=== PATIENT | male | born 1975 | race African-American/Black ===

== ENCOUNTER 2016-09-20 05:48 | Inpatient (IN) ==
[2016-09-20 06:01] LABS: MANUAL DIFF NEEDED? NO
[2016-09-20 06:06] LABS: BASO% 0.3 % (0.0-0.8); EOS# 0.13 X1000 (0.0-0.7); EOS% 1.3 % (0.0-10.0); HEMATOCRIT 45.3 % (42.0-52.0); HEMOGLOBIN 15.1 g/dL (14.0-18.0); IMM GRAN# 0.05 X1000 (0.0-0.04); IMM GRAN% 0.5 % (0.0-0.5); LYMPH# 2.99 X1000 (1.2-3.4); LYMPH% 30.7 % (20.5-51.1); MCH 33.9 PG (27-31); MCHC 33.3 g/dL (33-37); MCV 101.8 FL (81-99); MONO# 1.09 X1000 (0.11-0.59); MONO% 11.2 % (1.7-9.3); PLT 255 X1000 (130-400); RBC 4.45 XMIL (4.7-6.1)
[2016-09-20 06:28] LABS: AGAP 30; ALBUMIN 5.1 g/dL (3.5-5.0); ALKALINE PHOSPHATASE 77 U/L (32-122); BUN 15 mg/dL (8-22); CALCIUM 9.5 mg/dL (8.8-10.2); CHLORIDE 95 mmol/L (98-107); COSMO 284; GOT 59 U/L (10-34); GPT 49 U/L (10-44); POTASSIUM 3.7 mmol/L (3.5-5.1); SODIUM 141 mmol/L (136-145); TCO2 16 mmol/L (25-35); TOTAL PROTEIN 8.7 g/dL (6.3-8.3)
[2016-09-20 06:39] LABS: URINE CULTURE NEEDED? NO; URINE MICRO REVIEW NEEDED? NO; URINE SOURCE CLEAN CATCH
[2016-09-20 06:44] LABS: BILIRUBIN URINE NEGATIVE (NEGATIVE); BLOOD URINE SMALL (NEGATIVE); COLOR YELLOW; GLUCOSE URINE NEGATIVE (NEGATIVE); LEUKOCYTES URINE NEGATIVE (NEGATIVE); NITRITE URINE NEGATIVE (NEGATIVE); PH URINE 5.5; PROTEIN URINE 30 mg/dL (NEGATIVE); SP GRAVITY URINE 1.017; TURBIDITY URINE CLEAR (CLEAR); UROBILINOGEN URINE NORMAL (NORMAL)
[2016-09-20 06:45] LABS: UR EPITHELIAL CELLS <10 /HPF (<10); URINE BACTERIA NEGATIVE /HPF; URINE RBC <10 /HPF (<10); URINE WBC <10 /HPF (<10)
--- NOTE | 2016-09-20 06:45 | PROVIDER DOCUMENTATION ---
HPI-Neurological Disorder - General Chief Complaint: Unresponsive Stated Complaint: questionable unresponsivness Time Seen by Provider: 09/20/16 05:54 Source: family, EMS Allergies/Adverse Reactions: Patient Allergies Allergy/AdvReac Type Severity Reaction Status Date / Time Penicillins Allergy ITCHING Verified 09/20/16 06:04 - History of Present Illness-Neuro Nature of Presenting Problem: 41 yo BM was apparently watching TV with his girlfriend who left the room briefly. Upreturn he was "foaming at the mouth" and unresponsive but did not have any jerking, did not bite his lips or tongue, was not incontinent. He does drink a few beersevery day, denies any street drugs. Severity: reports: moderate Onset/Duration: reports: just prior to arrival Timing: reports: improving Context: reports: found unresponsive by family, recent/heavy alcohol intake, impaired speech, seizure activity. denies: low blood sugar, drug abuse, overdose, head injury, recent infection, fever Approximate time patient was last seen normal?: 06:00 Character of Altered Mental Status: reports: confused, seizure activity Any recent trauma/injury?: reports: none Character of Deficits: denies: new weakness, altered sensation, vision problem/ glaucoma New weakness or altered sensation location:: reports: none Cognitive Baseline: alert but disoriented Gait Baseline: walks without assistance Associated Symptoms: reports: denies symptoms Similar Symptoms Previously?: No Recently seen or treated by another doctor?: No - Seizure First time to have a seizure?: Yes Witnessed seizure?: Yes How many seizure episodes?: 1 Episode details: reports: unknown duration Episode Frequency: no prior episodes Status Epilepticus: No Preceding symptoms/context:: recent alcohol or drug use Character of Seizure: reports: lost consciousness, stopped breathing Post-ictal Symptoms: reports: confusion Seizure related injury: none Review of Systems - Adult - REVIEW OF SYSTEMS - ADULT ROS:: unobtainable per condition Constitutional: reports: no symptoms reported Eyes: reports: no symptoms reported Ears, Nose, Mouth & Throat: reports: no symptoms reported Cardiovascular: reports: no symptoms reported Respiratory: reports: no symptoms reported Gastrointestinal: reports: no symptoms reported Genitourinary: reports: no symptoms reported Musculoskeletal: reports: no symptoms reported Integumentary: reports: no symptoms reported Neurological: reports: no symptoms reported Psychiatric: reports: no symptoms reported Endocrine: reports: no symptoms reported Hematologic/Lymphatic: reports: no symptoms reported Allergic/Immunologic: reports: no symptoms reported All Other Systems: Reviewed and Negative Past History - Adult - PAST MEDICAL HISTORY-ADULT Review of Records: reports: Old Records Reviewed, Nursing Assessment Review, Medications Reviewed Major Childhood Illnesses: reports: denies history Cardiovascular: reports: denies history Respiratory: reports: denies history Gastrointestinal: reports: denies history Obstetrical/Gynecological: reports: denies history Genitourinary: reports: denies history Musculoskeletal: reports: denies history Neurological: reports: denies history Psychiatric: reports: denies history Endocrine/Immune: reports: denies history Other Conditions: reports: denies history - PRIOR SURGERIES/PROCEDURES Surgical/Procedure History: reports: bowel surgery (hernia repair) - PRIOR HOSPITALIZATIONS Prior Hospitalizations: reports: for other non-related - IMMUNIZATION STATUS Childhood Immunizations: See Nurse Assessment Flu Vaccine: See Nurse Assessment - FAMILY HISTORY Family History: reviewed, not pertinent Physical Exam- Neurological - Physical Exam-Neuro Initial Vital Signs Reviewed: Yes General Appearance: appears well, alert, no apparent distress Eye Exam: bilateral eye: normal inspection, PERRL HENMT: normocephalic/atraumatic, moist mucous membranes, normal ENT inspection Head Injury: no evidence of injury. negative: Le's Sign Neck: non-tender, full range of motion Respiratory: chest non-tender, lungs clear Cardiovascular: normal peripheral pulses, regular rate, rhythm, no edema Abdominal Exam: normal bowel sounds, non tender, soft Extremity: normal range of motion, non-tender sole skiver Exam: normal hearing, normal speech, PERRL Coordination/Gait: normal finger to nose Motor/Sensory: no motor deficit, no sensory deficit, no pronator drift, negative Babinski's sign Neurologic: grossly normal Integumentary: normal color, normal turgor Psych/Mental Status: normal mood/affect - Glascow Coma Scale Total Glascow Score: 15 Progress - PLAN OF CARE/RESULTS Progress/Plan/Lab Results: Vital Signs - 8 hr 09/20/16 06:31 09/20/16 07:35 09/20/16 08:46 Temperature 98.5 F Pulse Rate 67 83 78 Respiratory Rate 18 21 20 Blood Pressure 151/97 137/76 136/89 O2 Sat by Pulse Oximetry 100 98 100 09/20/16 09:00 Temperature Pulse Rate 76 Respiratory Rate 18 Blood Pressure 140/83 O2 Sat by Pulse Oximetry 100 Laboratory Results - last 24 hr 09/20/16 09/20/16 09/20/16 05:52 05:54 05:54 WBC 9.74 RBC 4.45 L Hgb 15.1 Hct 45.3 MCV 101.8 H MCH 33.9 H MCHC 33.3 RDW Std Deviation 12.9 Plt Count 255 MPV 11.0 H Immature Gran % (Auto) 0.5 Neut % (Auto) 56.0 Lymph % (Auto) 30.7 [place] % (Auto) 11.2 H Eos % (Auto) 1.3 Baso % (Auto) 0.3 Immature Gran # (Auto) 0.05 H Neut # (Auto) 5.45 Lymph # (Auto) 2.99 [place] # (Auto) 1.09 H Eos # (Auto) 0.13 Baso # (Auto) 0.03 Sodium 141 Potassium 3.7 Chloride 95 L Carbon Dioxide 16 L Anion Gap 30 BUN 15 Creatinine 1.3 H Estimated GFR/1.73 m2 > 60 BUN/Creatinine Ratio 12 Glucose 129 H POC Glucose 97 Calculated Osmolality 284 Calcium 9.5 Total Bilirubin 0.50 AST 59 H ALT 49 H Alkaline Phosphatase 77 Creatine Kinase Creatine Kinase Index CK-MB (CK-2) Total Protein 8.7 H Albumin 5.1 H Globulin 3.6 Albumin/Globulin Ratio 1.4 Urine Source Urine Color Urine Turbidity Urine pH Ur Specific [place] Urine Protein Ur Glucose (Stick) Ur Ketones (Stick) Urine Blood Urine Nitrite Urine Bilirubin Urobilinogen Dipstick Urine Leukocytes Urine WBC (Auto) Urine RBC (Auto) U Epithel Cells (Auto) Urine Bacteria (Auto) Urine Opiates Screen Ur Oxycodone Screen Ur Methadone, Qual Ur Barbiturates Screen Ur Phencyclidine Scrn Ur Amphetamines Screen U Benzodiazepines Scrn Urine Cocaine Screen U Cannabinoids Screen 09/20/16 09/20/16 09/20/16 05:54 06:15 06:15 WBC RBC Hgb Hct MCV MCH MCHC RDW Std Deviation Plt Count MPV Immature Gran % (Auto) Neut % (Auto) Lymph % (Auto) [place] % (Auto) Eos % (Auto) Baso % (Auto) Immature Gran # (Auto) Neut # (Auto) Lymph # (Auto) [place] # (Auto) Eos # (Auto) Baso # (Auto) Sodium Potassium Chloride Carbon Dioxide Anion Gap BUN Creatinine Estimated GFR/1.73 m2 BUN/Creatinine Ratio Glucose POC Glucose Calculated Osmolality Calcium Total Bilirubin AST ALT Alkaline Phosphatase Creatine Kinase 316 H Creatine Kinase Index 0.7 CK-MB (CK-2) 2.30 Total Protein Albumin Globulin Albumin/Globulin Ratio Urine Source CLEAN CATCH Urine Color YELLOW Urine Turbidity CLEAR Urine pH 5.5 Ur Specific [place] 1.017 Urine Protein 30 A Ur Glucose (Stick) NEGATIVE Ur Ketones (Stick) 20 A Urine Blood SMALL A Urine Nitrite NEGATIVE Urine Bilirubin NEGATIVE Urobilinogen Dipstick NORMAL Urine Leukocytes NEGATIVE Urine WBC (Auto) <10 Urine RBC (Auto) <10 U Epithel Cells (Auto) <10 Urine Bacteria (Auto) NEGATIVE Urine Opiates Screen NONE DETECTED Ur Oxycodone Screen NONE DETECTED Ur Methadone, Qual NONE DETECTED Ur Barbiturates Screen NONE DETECTED Ur Phencyclidine Scrn NONE DETECTED Ur Amphetamines Screen NONE DETECTED U Benzodiazepines Scrn NONE DETECTED Urine Cocaine Screen PRESUMPTIVE POSITIVE A U Cannabinoids Screen PRESUMPTIVE POSITIVE A Orders Category Date Time Status FSBS [Finger Stick Blood Sugar (ED)] DIRECTED Care 09/20/16 05:49 Active HEAD W/O CONTRAST [CT] Stat Exams 09/20/16 06:36 Completed CBC WITH ELECTRONIC DIFF [HEME] Stat Lab 09/20/16 05:54 Completed COMPREHENSIVE METABOLIC PANEL [CHEM] Stat Lab 09/20/16 05:54 Completed Cardiac Profile [CK PROFILE] [SP CHEM] Stat Lab 09/20/16 05:54 Completed UDS [URINE DRUG SCREEN] Stat Lab 09/20/16 06:15 Completed URINALYSIS W/POSS RFLX CULT-1 [URINALYSIS] Stat Lab 09/20/16 06:15 Completed Levetiracetam [Keppra] 500 mg Med 09/20/16 07:39 Discontinued 0.9% Sodium Chloride Inj [Ns] 100 ml IV NOW Lorazepam [Ativan] Med 09/20/16 07:20 Discontinued 2 mg .ROUTE .STK-MED ONE Lorazepam [Ativan] Med 09/20/16 07:23 Discontinued 2 mg IV NOW ONE EKG [EKG] Stat Ther 09/20/16 05:49 Draft Result Diagrams: 09/20/16 05:54 09/20/16 05:54 Departure - Departure Date of Disposition Decision: 09/20/16 Time of Disposition Decision: 09:48 DIAGNOSIS: Seizure disorder, Drug abuse, cocaine type, Alcohol abuse Disposition: ADMITTED INPATIENT 09 Certified Medical Emergency: Emergent Condition: Stable Referrals and Follow-Ups: None,PCP [Primary Care Provider] - - Critical Care Note This patient required my direct & personal management of CC.: Yes Total Time (mins): 60 Critical Care Statement: This patient required my direct personal management to treat or rule out processes, the absence of which, could potentiallly result in sudden, clinically significant life or limb threatening deterioration. Attestation - Physician/ BILL Attestation The physician spent face to face time with patient:: Yes Advanced Practice Provider documentation review:: The physician spent face to face time with this patient and agrees with all MLP documentation, treatment, and medical decision making by the MLP. See provider notes for further information.
--- NOTE | 2016-09-20 06:49 | EKG Report ---
Test Performed on : 09/20/2016 05:46:44 AM Test Reason : POSS. SZ. Blood Pressure : / mmHG Vent. Rate : 073 BPM Atrial Rate : 073 BPM P-R Int : 112 ms QRS Dur : 100 ms QT Int : 410 ms P-R-T Axes : 068 081 053 degrees QTc Int : 451 ms Normal sinus rhythm. Normal ECG No previous ECGs available Unconfirmed Result
[2016-09-20 06:52] LABS: CK INDEX 0.7 (0.0-2.5); CK-MB 2.3 ng/mL (0.0-5.0)
[2016-09-20 07:10] LABS: UR AMPHETAMINES QUAL NONE DETECTED (NONE DETECT); UR BARBITUATES QUAL NONE DETECTED (NONE DETECT); UR BENZODIAZEPIN QUAL NONE DETECTED (NONE DETECT); UR CANNABINOIDS QUAL PRESUMPTIVE POSITIVE (NONE DETECT); UR COCAINE QUAL PRESUMPTIVE POSITIVE (NONE DETECT); UR METHADONE QUAL NONE DETECTED (NONE DETECT); UR OPIATES QUAL NONE DETECTED (NONE DETECT); UR OXYCODONE QUAL NONE DETECTED (NONE DETECT); UR PCP QUAL NONE DETECTED (NONE DETECT)
[2016-09-20] MEDS ORDERED: ATIVAN ONE (07:20)
[2016-09-20] MEDS ORDERED: ATIVAN IV ONE (07:23)
--- NOTE | 2016-09-20 07:24 | Diag Imaging Result Doc PS360 ---
EXAM: CT BRAIN WITHOUT HISTORY: New onset seizure TECHNIQUE: Dose reduction protocol COMPARISON: None. FINDINGS: No parenchymal hemorrhage. No epidural or subdural hematoma. No subarachnoid hemorrhage. No mass or midline shift. No hydrocephalus. No sinus opacification. IMPRESSION: No hemorrhage. Negative brain CT without contrast. Electronically signed by Epifanio Fay 09/20/2016 7:22 AM
[2016-09-20] MEDS ORDERED: KEPPRA 500 MG in NS 100 ML IV ONE (07:39)
[2016-09-20] MEDS ORDERED: ZOFRAN IV PRN (11:16)
[2016-09-20] MEDS ORDERED: ATIVAN IV PRN (11:16)
[2016-09-20] MEDS ORDERED: TYLENOL PO PRN (11:16)
--- NOTE | 2016-09-20 11:22 | Diag Imaging Result Doc PS360 ---
EXAM: CT THORAX W/O CONTRAST INDICATION: fall TECHNIQUE: Dose reduction protocol was used. COMPARISON: None. FINDINGS: There are several calcified granulomata in the left lower lobe. There is mild focal airspace consolidation involving the superior aspect of the right lower lobe that is nonspecific. Consider an inflammatory or infectious process. I suppose, in the setting of acute trauma, this could represent a small pulmonary contusion, but it is doubtful. There are no pleural fluid collections and no pneumothorax. There are calcified left hilar lymph nodes indicating prior granulomatous disease. The heart is not significantly enlarged. There is no abnormal pericardial fluid collection. The bony structures of the thorax are grossly intact. IMPRESSION: 1.Mild focal airspace consolidation in the right lower lobe. Please see above discussion. 2.Other incidental/nonacute findings detailed above. Electronically signed by Clarence Shaffer 09/20/2016 11:19 AM
--- NOTE | 2016-09-20 12:06 | HISTORY AND PHYSICAL ---
CHIEF COMPLAINT: New onset seizures. PRIMARY CARE PROVIDER: No one. HISTORY OF PRESENT ILLNESS: Mr. River Connell is a 41-year-old, male, he is in no acute distress. He is past the postictal stages and able to answer most questions appropriately. He does not have a medical history of seizure disorder. He does state that he drinks beer daily up to a half a case and that he smokes marijuana and uses cocaine 2-3 days per week. According to the mother who was at the bedside she stated that he was at his girlfriend's house. He complained of being hot. She left the room for moment and came back finding him foaming at the mouth and unresponsive. According to the mother his girlfriend who is a nurse at a correction in [place] started doing chest compressions on him. It is unknown if he actually lost a pulse or not. 911 was called. He was brought to the emergency room. Upon admission he was sent for head CT which was negative but on his way back from the imaging he was found to have another grand mal seizure and had snoring respirations afterwards. The amount of time that he seized is unknown. He received 2 mg of Ativan and 500 mg of Keppra which resolved his seizure. He has not had a seizure since. He has no neurological deficits. He was confused as to what the current year was but oriented to everything else. We will admit to the medical floor with seizure precautions. We will have Ativan p.r.n. as needed for seizures and Neurology has been consulted. Will hold on Keppra for now as this was likely related to polysubstance abuse and possibly alcohol abuse. If he has another seizure will add an antiepileptic drugs. PAST MEDICAL HISTORY: None. PAST SURGICAL HISTORY: None. SOCIAL HISTORY: Up to a half a case of beer per day or more. One pack per day smoker. Cocaine and marijuana 2-3 days a week. He is not working. He has a girlfriend who is a nurse that works at a correction in [place]. FAMILY HISTORY: Father had kidney transplant, hypertension. Mother has diabetes mellitus. Father is . Mother still living. REVIEW OF SYSTEMS: The patient does complain of a generalized headache but 14 point review of systems negative except for those mentioned in the above HPI. ALLERGIES: Penicillin. HOME MEDICATIONS: None. PHYSICAL EXAMINATION: VITAL SIGNS: Temperature 98.5 degrees, heart rate 74, respiratory rate 18, blood pressure 128/88, O2 saturation 98% on room air. GENERAL: Mr. River Connell is a 41-year-old, male, he is in no acute distress. He is able to answer most questions appropriately. HEENT: Atraumatic, normocephalic. Pupils equal, round, reactive to light. Extraocular movements intact. Mucous membranes are dry. NECK: No JVD or carotid bruits noted. CARDIOVASCULAR: S1, S2. Regular rate and rhythm. No rubs, gallops, or murmurs. PULMONARY: Clear to auscultate with bilateral breath sounds. No accessory muscle use or work of breathing noted. ABDOMEN: Soft, nontender, nondistended. Positive bowel sounds x4. EXTREMITIES: No edema noted. +2 dorsalis and radial pulses. SKIN: Warm, dry, intact. NEUROLOGIC: A and O times name and place. Disoriented to current year. Moved all extremities equally and follows all commands. LABORATORY DATA: White blood cells 9000, hemoglobin 15, hematocrit 45, platelet count 255,000. Sodium 141, potassium 3.7, BUN 15, creatinine is 1.3. Glucose 129. Calcium 9.5, magnesium 2.1. Bilirubin 0.50. AST 59, ALT 49, CK 316. Urinalysis 30 protein, 20 ketones, small blood. Urine drug screen positive for cocaine and cannabinoids. Alcohol level pending. IMAGING: Head CT: Negative brain CT without contrast. EKG normal sinus rhythm, rate 73, QTc is 451. ASSESSMENT/PLAN: 1. New onset seizures likely secondary to polysubstance abuse and alcohol abuse. No history of seizures in the past. He had approximately 2 seizures that were grand mal. There were no loss of bowel or bladder at that time. He did have the postictal snoring respirations. Neuro has been consulted. He received 500 loading dose of Keppra and 2 mg of Ativan. He has been seizure-free since. We will keep him on seizure precautions and monitor overnight. Patient was educated on the risk of cocaine and alcohol and seizures. 2. Polysubstance abuse. Positive for cocaine and marijuana. Patient was educated on high risk drugs. 3. Alcohol abuse. Apparently he drinks anywhere from a half a case of beer or more per day. We will monitor for withdrawals. Likely will be discharged prior to that risk. 4. Tobacco abuse. Cessation discussed. 5. Deep venous thrombosis prophylaxis. Low-dose Lovenox. 6. Mild JEFF likely secondary to dehydration. He will receive IV fluid hydration x2 L. Dictated by CYNDY Luke for Juve Holland MD cc: CYNDY Luke MD
[2016-09-20] MEDS: NS 1,000 ML IV SCH (14:25)
--- NOTE | 2016-09-20 15:34 | CONSULTATION ---
DATE OF CONSULTATION: 09/20/2016 REASON FOR CONSULTATION: Patient seen in consultation at the request of Dr. Woodall for evaluation of seizures. HISTORY OF PRESENT ILLNESS: This is a 41-year-old, right-handed, - [place] male with history of polysubstance abuse, who presents early this morning with new onset seizures. Apparently, he complained of being hot and subsequently was found foaming at the mouth and unresponsive. There was CPR compressions done on him by his girlfriend but it is unclear if there was any loss of pulse. He was brought to the emergency room by EMS. Head CT was negative for acute findings. He had another tonic-clonic seizure and had snoring respirations afterwards. He did receive some Ativan and Keppra and has not had any further seizures. A toxicology screen was positive for cannabinoids and cocaine. His alcohol screen was negative, although he reports drinking heavily every day. PAST MEDICAL HISTORY: No prior history of seizures. Denies medical problems. SOCIAL HISTORY: He drinks about a case of beer per day or more. He smokes tobacco. He does use cocaine and marijuana a few days a week. He is not currently working. He lives with his mother. FAMILY HISTORY: Father with a kidney transplant, hypertension. Mom with diabetes. No seizures in the family. ALLERGIES: Penicillin. HOME MEDICATIONS: None. REVIEW OF SYSTEMS: Balance of 12 was conducted and was, otherwise, negative except that detailed in the HPI. He does complain of some mild headaches. PHYSICAL EXAMINATION: Vital Signs: He is afebrile. Blood pressure 136/78, pulse 74, respirations 18. General: This is a young male, asleep in bed. He arouses to verbal stimuli. He regards. No acute distress. Neck: Supple. No meningismus. Pulses are intact. Heart: Regular rate and rhythm. Chest: No increased work of breathing. Normal chest rise and expansion. HEENT: Sclerae are anicteric. No erythema. Moist mucous membranes. Normocephalic, atraumatic. Extremities: Warm and well perfused. Intact distal pulses. He is awake and alert. He is able to answer questions. He is reasonably oriented. Language is intact. No drift. Normal strength testing and no asymmetry. No evidence of incoordination on testing. No sensory disturbance on gross testing. DIAGNOSTICS: A noncontrast head CT was personally reviewed. There were no acute findings. No hemorrhage. White count 9.7. Sodium 141, potassium 3.7. BUN 15, creatinine 1.3, glucose 129. Calcium and magnesium are normal. AST and ALT are 59 and 49. Alkaline phosphatase 77. CK 316. Urinalysis shows 30 protein, 20 ketones, small blood. Toxicology positive for cocaine and cannabinoids. Serum alcohol was 0. ASSESSMENT AND PLAN: A 41-year-old, right-handed, -[place] male with poly substance and alcohol abuse presenting with new onset seizures. He was initially reported to be postictal though that appears to be clearing since his stay here. His exam is nonfocal and a head CT did not show any evidence of acute findings. This is reassuring. I suspect his seizures are provoked, secondary to his polysubstance abuse and potentially alcohol withdrawal; His level was 0 already on admission. I am not inclined to start antiepileptic medications at this time. As this is first onset seizures though, I will order a routine EEG to be sure that he is not at increased propensity for true epilepsy. Agree with tele monitoring. Given the seizures, he should not be driving. He should follow seizure precautions. Lengthy discussion regarding the risks of illicit substance abuse. Encouraged him to refrain from this. Thank you for this consultation. Will follow. cc: Lara Mott MD [facility]
[2016-09-21] MEDS: NS 1,000 ML IV SCH (00:43)
[2016-09-21] MEDS ORDERED: ATIVAN IV PRN (01:00)
[2016-09-21 06:41] LABS: MANUAL DIFF NEEDED? NO
[2016-09-21 06:46] LABS: BASO% 0.3 % (0.0-0.8); EOS# 0.05 X1000 (0.0-0.7); EOS% 0.8 % (0.0-10.0); HEMATOCRIT 40.4 % (42.0-52.0); HEMOGLOBIN 13.7 g/dL (14.0-18.0); LYMPH# 1.19 X1000 (1.2-3.4); LYMPH% 19.6 % (20.5-51.1); MCH 33.4 PG (27-31); MCHC 33.9 g/dL (33-37); MCV 98.5 FL (81-99); MONO# 0.62 X1000 (0.11-0.59); MONO% 10.2 % (1.7-9.3); MPV 10.5 FL (7.4-10.4); NEUT% 69.1 % (42.2-75.2); PLT 192 X1000 (130-400)
[2016-09-21 07:10] LABS: INR 0.99; PROTIME 10.4 Seconds (9.2-11.7); PTT 27.8 Seconds (22.0-36.0)
[2016-09-21 07:13] LABS: AGAP 12; ALKALINE PHOSPHATASE 59 U/L (32-122); BUN 7 mg/dL (8-22); CHLORIDE 101 mmol/L (98-107); COSMO 277; GOT 57 U/L (10-34); GPT 37 U/L (10-44); POTASSIUM 3.5 mmol/L (3.5-5.1); SODIUM 139 mmol/L (136-145); TCO2 26 mmol/L (25-35); TOTAL BILIRUBIN 0.61 mg/dL (0.20-1.00); TOTAL PROTEIN 6.9 g/dL (6.3-8.3)
--- NOTE | 2016-09-21 07:51 | EKG Report ---
Test Performed on : 09/21/2016 06:59:38 AM Test Reason : chest pain Blood Pressure : / mmHG Vent. Rate : 064 BPM Atrial Rate : 064 BPM P-R Int : 114 ms QRS Dur : 106 ms QT Int : 420 ms P-R-T Axes : 068 085 071 degrees QTc Int : 433 ms Normal sinus rhythm. Normal ECG When compared with ECG of 20-SEP-2016 05:46, T wave amplitude has decreased in Lateral leads Nonspecific T wave abnormality aVL T wave inversion less evident in V1 Confirmed by Yong Weaver DO ([id number]) on 09/23/2016 1:07:28 PM
[2016-09-21] MEDS: PRILOSEC PO SCH (08:45)
[2016-09-21] MEDS: LOVENOX SUBQ SCH (08:46)
--- NOTE | 2016-09-21 11:26 | PROGRESS NOTE ---
DATE: 09/21/2016 SUBJECTIVE: Patient reports feeling fine. No headache. No more episodes of seizures. OBJECTIVE: Vital Signs: Temperature 98.2 degrees, heart rate 72, respiratory rate 19, blood pressure 142/82, O2 saturation 100% on room air. General Examination: This is a 41-year-old, [place] male, lying in bed, in no acute distress. HEENT: Head is normocephalic and atraumatic. Anicteric sclerae and pale conjunctivae. Mucous membranes dry. Neck: Supple. No JVD noted. No carotid bruits. No lymphadenopathy. No thyromegaly. Cardiovascular Examination: S1 and S2 heard. No murmurs, gallops, or rubs. Regular rate and rhythm. Respiratory Examination: Clear bilaterally to auscultation. No work of breathing or using accessory muscles. Abdomen: Soft, nontender to palpation. Bowel sounds present. No organomegaly. Extremities: No clubbing, cyanosis, or edema. Peripheral pulses present in both legs. Neurological Examination: The patient is alert and oriented x3. Able to move 4 extremities. Cranial nerves 2-12 grossly normal. Laboratory Data: CBC is unremarkable, as well as BMP with creatinine back to normal. ASSESSMENT AND PLAN: 1. New onset seizure secondary to polysubstance abuse and alcohol withdrawal. The patient has been admitted for this condition. Dr. Mott from neurology has evaluated this patient and she thinks that this new onset seizure is definitely most likely related to polysubstance abuse. In any case, they plan to do an EEG to see there if is any electrical activity in the brain that may suggest that this patient is not prone to develop seizures. In any case, this patient clinically is much better. He did not require any more Ativan intravenous. At this point, we are going to continue watching him until we get the results of the EEG. I think if this patient is okay and continues to improve clinically, he can be discharged. 2. Polysubstance abuse. This patient was positive for cocaine and marijuana. He admitted to consume those substances fluids. The patient extensively advised about stopping abusing drugs. 3. Alcohol abuse. Apparently, this onset of seizures could be related to alcohol withdrawal, although this patient reports drinking half a case of beer per day. In any case, this patient is stable, not requiring any more Ativan. We may need to give him Librium at discharge. 4. Tobacco abuse. Cessation discussed. 5. Deep vein thrombosis prophylaxis with Lovenox. 6. Acute kidney injury. That condition is completely resolved today. cc: Juve Holland MD
--- NOTE | 2016-09-21 14:07 | PROGRESS NOTE ---
DATE: 09/21/2016 Mr. Connell is awake, alert, attentive, oriented. He seems cheerful now. He says he feels completely recovered to baseline. I reviewed the history recorded in the chart. I encouraged him to avoid illicit drug use, to be careful with other substances and to consider ethanol abstinence. I do not think we need any further workup urgently. No new suggestions from neurologic standpoint today. I will be glad to see him again if he has more episodes. I would not add medicine for seizure control at this point and will be optimistic that, if he does not use illicit substances and if he can avoid ethanol withdrawal, he will not have further seizures. cc: MD YESENIA Schwartz IIID
[2016-09-22 06:28] LABS: MANUAL DIFF NEEDED? NO
[2016-09-22 06:46] LABS: BASO% 0.4 % (0.0-0.8); EOS# 0.07 X1000 (0.0-0.7); EOS% 1.5 % (0.0-10.0); HEMATOCRIT 41.9 % (42.0-52.0); HEMOGLOBIN 14.2 g/dL (14.0-18.0); LYMPH# 1.03 X1000 (1.2-3.4); LYMPH% 21.8 % (20.5-51.1); MCH 33.3 PG (27-31); MCHC 33.9 g/dL (33-37); MCV 98.4 FL (81-99); MONO# 0.55 X1000 (0.11-0.59); MONO% 11.7 % (1.7-9.3); MPV 10.4 FL (7.4-10.4); NEUT% 64.6 % (42.2-75.2); PLT 207 X1000 (130-400); RBC 4.26 XMIL (4.7-6.1)
[2016-09-22] MEDS: PRILOSEC PO SCH (06:47)
[2016-09-22 06:56] LABS: AGAP 11; BUN 5 mg/dL (8-22); CALCIUM 9.4 mg/dL (8.8-10.2); CHLORIDE 102 mmol/L (98-107); COSMO 278; POTASSIUM 3.8 mmol/L (3.5-5.1); SODIUM 141 mmol/L (136-145); TCO2 28 mmol/L (25-35)
[2016-09-22 08:29] VITALS: BP 142/90
[2016-09-22] MEDS: LOVENOX SUBQ SCH (11:21)
--- NOTE | 2016-09-22 17:42 | DISCHARGE SUMMARY ---
ADMISSION DATE: 09/20/2016 DISCHARGE DATE: 09/22/2016 CONSULTATIONS: Lara Mott MD with Neurology. PERTINENT PROCEDURES: 1. Head CT showed no hemorrhage, negative brain CT without contrast. 2. Chest CT showed mild focal airspace consolidation in the right lower lobe. DISCHARGE DIAGNOSES: 1. New onset seizure secondary to polysubstance abuse and alcohol withdrawal. Evaluated by Neurology. He has been encouraged to avoid illicit drug use and to consider ethanol abstinence. Neurology will not add any medicine for seizure control at this point. does not use illicit substances and can avoid ethanol withdrawal, then he will not have any further seizures. The patient has been seizure-free since admission. He is now stable for discharge. 2. Polysubstance abuse. The patient was positive for cocaine and marijuana. Again he has been educated to stop illicit drug use. 3. Alcohol abuse. He has been educated about abstinence. 4. Tobacco abuse. Patient has been educated about smoking cessation as well as the means to quit. 5. Acute kidney injury resolved. HOSPITAL COURSE: Mr. Connell is a 41-year-old, male with no past medical history, who states that he drinks beer daily, half a case. He smokes marijuana and uses cocaine 2-3 days per week according to his mother who was at the bedside on his admission. She stated that he was at his girlfriend's house. He complained of being hot. She left the room for a moment and came back to find him foaming at the mouth and unresponsive. According to the mother, his girlfriend who is a nurse at the [employer] in [place] started doing chest compressions on him. It is unknown if he actually lost a pulse or not. 911 was called. He was brought to the emergency room. Upon admission he was sent for a head CT which was negative. On his way back from imaging he was found to have another grand mal seizure, had snoring respirations afterwards. The amount of time he seized is unknown. He received 2 mg of Ativan and 500 mg of Keppra which resolved his seizure. He has not had a seizure since. No neurological deficits. Upon admission he was passed the postictal states stages. He was able to answer most questions. He was confused as to the current year but oriented to everything else. He was admitted to the medical floor with seizure precautions with p.r.n. Ativan, with a Neurology consultation, monitored closely for any alcohol withdrawal, and started on IV fluids for acute kidney injury secondary to dehydration. He was educated daily on polysubstance abuse as well as alcohol and tobacco abuse and cessation. They suspect his seizures were provoked secondary to his polysubstance abuse and potential for alcohol withdrawal. His alcohol level was 0 on admission. They were not inclined to start any antiepileptic medication. They did order a routine EEG however I do not have those final results. They did have lengthy discussions regarding the risk of illicit substance abuse as well as ethanol abuse and encouraged him to refrain from this. The patient has been seizure-free since his admission. The patient is appropriate for discharge. VITAL SIGNS ON DISCHARGE: Temperature is 98.4 degrees, heart rate 78, respirations 20, blood pressure 142/90, O2 is 100% on room air. DISCHARGE MEDICATIONS: Prilosec 20 mg p.o. daily. FOLLOWUP: Mr. Connell is being discharged home with self-care. He is to follow up with Dr. Langston as instructed. He is to follow up with a primary care physician in 1 week for which a list has been provided to him. He can return to the ED for any worsening of symptoms. Again he has been educated against the use of any illicit drugs, smoking cessation as well as abstaining from alcoholic use. DISCHARGE TIME: 30 minutes. Dictated by CYNDY Boss for Juve Holland MD cc: Juve Holland MD
--- NOTE | 2016-09-26 19:59 | EEG REPORT ---
DATE: 09/20/2016 REFERRING PHYSICIAN: Dr. Mott. EEG #: [id number]. [facility] ROOM OPERATOR: Luis Castle. BACKGROUND INFORMATION TECHNIQUE: A digitally recorded EEG is obtained with 1 additional channel for EKG. HISTORY OF PRESENT ILLNESS: A 41-year-old male admitted with new onset seizures. He has a history of polysubstance abuse including alcohol, marijuana and cocaine. His urine toxicology was positive for marijuana and cocaine upon admission, the alcohol level was negative. An EEG is ordered to detect evidence for seizures and increased propensity for seizures in this patient with first onset seizures. MEDICATIONS: Notable for p.r.n. Ativan. EEG FINDINGS: A posterior dominant 9.5 hertz alpha rhythm is seen symmetrically in the occipital regions. The anterior background consists of mixed alpha and beta frequencies. No epileptiform discharges and no seizures are noted. No focal slowing is seen. Hyperventilation was not performed. Photic stimulation induced a normal photic driving response. The patient is awake for the entire study. The EKG reveals regular R to R intervals. IMPRESSION AND CLINICAL CORRELATION: Normal awake routine EEG. Of note, a normal EEG does not rule out epilepsy. Clinical correlation is advised. cc: Lara Mott MD MTDD
== END 2016-09-22 11:50 | disposition home or self-care (01) ==
LOC: ED 05:48 → 3N 10:42
PROVIDERS: ATTEND Internal Medicine